=== PATIENT | male | born 1980 | race Two or more races ===

== ENCOUNTER 2024-02-26 11:51 | Emergency (ER) | payer MEDICAID, OTHER ==
[~2024-02-26] VITALS: Ht 157.5 cm; Wt 89.0 kg
[2024-02-26 12:15] VITALS: BP 127/83; PULSE 84; RESP 16; O2SAT 98
[2024-02-26] MEDS ORDERED: SILV1CRE82 TOP (13:15)
== END 2024-02-26 16:15 | disposition home or self-care (01) ==
LOC: ER 11:51
DX: T23.201A Burn of second degree of right hand, unspecified site, initial encounter (principal); X08.8XXA Exposure to other specified smoke, fire and flames, initial encounter; Y93.89 Activity, other specified; Y92.89 Other specified places as the place of occurrence of the external cause; Y99.8 Other external cause status